=== PATIENT | male | born 1970 | race American Indian/Alaskan Native ===

== ENCOUNTER → 2018-03-26 08:58 | Outpatient (CLI) | payer MEDICAID, SELFPAY ==
--- NOTE | 2018-03-26 09:09 | MR_ITS ---
MR lumbar spine wo/w con, MR 3-d myelogram/MRCP Ordering Physician: Jose Manuel Borrego MD Patient Age: 48 years: Male HISTORY: ITS.REASON: POST-LAMINECTOMY SYNDROME Previous back surgery 2010. Right-sided low back pain. Numbness posterior aspect right leg. TECHNIQUE: :Sagittal STIR, T1, T2, axial T1 and T2. On 1.5T Siemens wide bore MRI. 3-D MR myelogram image set obtained & performed on MRI workstation. Additional sagittal thin section T2 weighted dataset obtained from this latter acquisition as well (---76 CPT) COMPARISON no prior lumbar studies. None available FINDINGS The vertebral bodies appear intact with no compression fractures. L5/S1 posterior fusion at L5/S1 with bilateral pedicle screws. A pronounced grade 1anterior listhesis (, near grade 2), , with 6 mm anterior offset of L5 on S1. I.. Previous generous laminectomy posteriorly at L5/S1 decompresses the spinal canal this level.. Slight narrowing and decreased volume, decreased height of the neural foramen bilaterally mainly due to the listhesis,... Also some mild posterior osteophytic ridging mainly from the inferior posterior margin L5 which also contributes to the moderate foraminal encroachment bilateral. L4/5 disc intact. Moderate facet & posterior element hypertrophy indent the lateral aspect of the thecal sac. These features laterally Tapers & slight narrowing central canal yielding borderline/mild spinal stenosis L4/5. Mild/moderate narrowing at at entry neural foramen bilaterally L4/5... Facet hypertrophy and superimposed upon Modest underlying AP dimension the neural foramen, due to relatively short pedicles; yield moderate moderate bilateral foraminal encroachment. L3/4. Disc intact mild posterior element arthropathy, hypertrophy on left. 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 Adequate but rather modest volume central canal.. L2/3 disc intact. L1/2 disc intact neural foramen widely patent [id number] T11/12 unremarkable T10-11. Slight disc space narrowing with scant bulge. 3-D MR myelogram image set shows tapering and narrowing the spinal canal most evident at the L5 &, L4/5 level due to the bilateral facet hypertrophy note: This study was dictated with a voice-recognition system. There may be typographical error is related to such. If they are significant please notify us for corrections IMPRESSION ......... L5/S1: posterior fusion with generous posterior laminectomy L5/S1 decompression spinal canal at this region. . This fusion fixation stabilizes stable underlying grade 1 ( near grade 2,) listhesis of L5 on S1 . L4/5: Facet hypertrophy at L4/5 laterally tapers the spinal canal yielding borderline/mild central canal stenosis at L4/5. Along with moderate bilateral foraminal narrowing/encroachment at this level. Other disc levels above L4/5 intact
--- NOTE | 2018-03-26 10:21 | HMH.ITSHM ---
Current Home Medications as stated by this patient Jace Nieto or counter sales representative. []MELOXICAM HYDROCODONE TAMSULOSIN MEPRAZOLE ATORVASTATIN METHOCARBAMAL TEGRETOL BUSPAR
== END ==
PROVIDERS: PCP Nurse Practitioner Family; Visit Provider Anesthesiology Pain Medicine
DX: M96.1 Postlaminectomy syndrome, not elsewhere classified (principal)
CPT/HCPCS: 72158; 76376; A9576